=== PATIENT | female | born 1940 | race Caucasian/White ===

== ENCOUNTER → 2017-02-04 14:37 | Outpatient (CLI) | payer MEDICARE ==
[2016-03-05 08:32] VITALS: BMI 25.8
[~2017-02-04 14:37] MED LIST: ASPIRIN EC81 M1 PO; CO Q-1030 MG PO; DILAUDID4 MG PO; FISH OIL 1,0001 CA1 PO; MOBIC7.5 MG PO; MULTIPLE VITAMI1 TA1 PO; OMEPRAZOLE20 M1 PO; OXYBUTYNIN CHLOR5 MG PO; PROBIOTIC1 EAC1 PO; ZOCOR20 MG PO
== END | disposition home or self-care (01) ==
LOC: D.US 14:37
DX: R60.0 Localized edema (principal)